=== PATIENT | male | born 1995 | race Two or more races ===

== ENCOUNTER 2021-07-28 16:14 | Emergency (ER) | payer MEDICAID ==
[~2021-07-28] VITALS: Ht 182.9 cm; Wt 81.6 kg
--- NOTE | 2021-07-28 17:24 | NUR ---
SEEN AND EXAMINED BY MAU PAULINO.
--- NOTE | 2021-07-28 17:25 | NUR ---
ER PHLEB AT BEDSIDE FOR BLOOD DRAW.
[2021-07-28 17:48] LABS: BASOPHILS # (AUTO) 0.1 K/uL (0.0-0.2); BASOPHILS % (AUTO) 0.7 % (0.0-2.0); EOSINOPHILS % (AUTO) 1.2 % (0.0-6.0); HEMATOCRIT 44 % (39-51); HEMOGLOBIN 14.6 g/dL (13.5-17.5); LYMPHOCYTES # (AUTO) 1.8 K/uL (0.8-4.8); LYMPHOCYTES % (AUTO) 22.1 % (20.0-44.0); MEAN CORPUSCULAR HGB CONC 33 g/dl (31.0-36.0); MEAN CORPUSCULAR VOLUME 84 fL (80-96); MONOCYTES # (AUTO) 0.5 K/uL (0.1-1.30); MONOCYTES % (AUTO) 6.2 % (2.0-12.0); NEUTROPHILS # (AUTO) 5.8 K/uL (1.8-8.9); NEUTROPHILS % (AUTO) 69.8 % (43.0-81.0); PLATELET COUNT (AUTO) 267 K/uL (150-450); RED BLOOD CELL COUNT(AUTO) 5.23 MIL/uL (4.5-6.0); WHITE BLOOD COUNT (AUTO) 8.4 K/uL (4.3-11.0)
[2021-07-28 18:20] LABS: CALCIUM, SERUM 9.3 mg/dL (8.5-10.1); POTASSIUM 4.1 mmol/L (3.5-5.1)
[2021-07-28 18:36] LABS: BILIRUBIN,URINE NEGATIVE (NEGATIVE); COLOR,URINE YELLOW (YELLOW); LEUKOCYTE ESTERASE ,URINE NEGATIVE (NEGATIVE); NITRITE, URINE NEGATIVE (NEGATIVE); PROTEIN,URINE NEGATIVE (NEGATIVE); UGLUCOSE NEGATIVE (NEGATIVE); UROBILINOGEN,URINE 0.2 EU/dL (0.2)
[2021-07-28 18:46] LABS: BACTERIA,URINE Few /HPF (None Seen); RBC,URINE 51-80 /HPF (0-2); SQUAMOUS EPITHELIAL CELL,UR Few /HPF (None Seen); WBC,URINE 0-2 /HPF (0-3)
[2021-07-29 15:34] VITALS: BP 149/74
== END 2021-07-28 19:10 | disposition home or self-care (01) ==
LOC: ER 16:21
DX: R42 Dizziness and giddiness (principal); F17.200 Nicotine dependence, unspecified, uncomplicated; Z60.2 Problems related to living alone
CPT/HCPCS: 36415; 80048-TC; 81001; 85025-TC

== ENCOUNTER 2021-09-06 06:07 | Emergency (ER) | payer MEDICAID ==
[~2021-09-06] VITALS: Ht 182.9 cm; Wt 86.2 kg
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
--- NOTE | 2021-09-06 07:35 | NUR ---
THE PATIENT IS RECEIVED IN ER BED #11. ALERT AND ORIENTED X4. DENIES PAIN. IN ROOM AIR AND DENIES SOB. RESPIRATION REGULAR AND UNLABORED. ATTACHED TO THE MONITOR.
[2021-09-06] MEDS ORDERED: NALO4SPR NS (07:48)
--- NOTE | 2021-09-06 08:03 | NUR ---
The patient is alert and oriented x4. Denies SI/HI. Breathing even and unlabored. Denies SOB. Denies pain. IV removed. Catheter intact and site benign. Pressure and 4x4 applied to site. No bleeding noted.Patient discharged to home in stable condition. Written and verbal after care instructions given. Patient verbalizes understanding of instruction. [facility] info provided. The patient is picked up by his father.
[2021-09-06 08:04] VITALS: BP 106/68
== END 2021-09-06 08:04 | disposition home or self-care (01) ==
LOC: ER 06:08
DX: T40.411A Poisoning by fentanyl or fentanyl analogs, accidental (unintentional), initial encounter (principal); F90.9 Attention-deficit hyperactivity disorder, unspecified type; F17.200 Nicotine dependence, unspecified, uncomplicated; Y92.89 Other specified places as the place of occurrence of the external cause